=== PATIENT | female | born 1935 | race Two or more races ===

== ENCOUNTER 2017-06-01 10:27 | Emergency (ER) | payer OTHER ==
[~2017-06-01] VITALS: Ht 162.6 cm; Wt 59.0 kg
--- NOTE | 2017-06-01 10:29 | NUR ---
BBRA 860 FROM HOME FOR WEAKNESS AND DROWSINESS X 2 DAYS. GOWNED PT. PLACED ON MONITOR. AWAITING MD ORDER
--- NOTE | 2017-06-01 10:45 | NUR ---
LFA #20 IV ACCESS. BLOOD SAMPLE COLLECTED SENT TO LAB
[2017-06-01 10:46] LABS: BASOPHILS % (AUTO) 0.4 % (0.0-2.0); EOSINOPHILS # (AUTO) 0.1 /CMM (0.0-0.7); EOSINOPHILS % (AUTO) 0.9 % (0.0-6.0); HEMATOCRIT 45 % (33-45); HEMOGLOBIN 13.9 g/dL (11.5-14.8); LYMPHOCYTES # (AUTO) 1.4 /CMM (0.8-4.8); LYMPHOCYTES % (AUTO) 16.5 % (20.0-44.0); MEAN CORPUSCULAR HEMOGLOBIN 20 PG (26.0-33.0); MEAN CORPUSCULAR HGB CONC 31 g/dl (31.0-36.0); MEAN CORPUSCULAR VOLUME 66 fL (82-100); MONOCYTES # (AUTO) 0.6 /CMM (0.1-1.30); MONOCYTES % (AUTO) 6.8 % (2.0-12.0); NEUTROPHILS # (AUTO) 6.3 /CMM (1.8-8.9); NEUTROPHILS % (AUTO) 75.4 % (43.0-81.0); PLATELET COUNT (AUTO) 269 /CMM (150-450); RDW COEFFICIENT OF VARIATION 14.7 (11.5-15.0); RED BLOOD CELL COUNT(AUTO) 6.82 MIL/uL (4.0-5.2); WHITE BLOOD COUNT (AUTO) 8.4 K/uL (4.3-11.0)
[2017-06-01 10:54] LABS: CALCIUM, SERUM 9.4 mg/dL (8.5-10.1); CARBON DIOXIDE 33 mmol/L (21-32); CHLORIDE 106 mmol/L (98-107); CREATININE 0.7 mg/dL (0.6-1.3); GLUCOSE 115 mg/dL (74-106); POTASSIUM 3.6 mmol/L (3.5-5.1); SODIUM SERUM 141 mmol/L (136-145); UREA NITROGEN, BLOOD 15 mg/dL (7-18)
[2017-06-01] MEDS ORDERED: IV NS 0.9% 1,000 ML BAG IV ONE (11:00)
[2017-06-01 11:03] LABS: TROPONIN I < 0.017 ng/mL (0.00-0.056)
--- NOTE | 2017-06-01 11:27 | NUR ---
URINE SAMPLE COLLECTED SENT TO LAB
[2017-06-01 11:32] LABS: APPEARANCE,URINE Clear (CLEAR); BILIRUBIN,URINE Negative (NEGATIVE); BLOOD, URINE Negative Ery/uL (NEGATIVE); COLOR,URINE Yellow (YELLOW); KETONES,URINE Negative (NEGATIVE); LEUKOCYTE ESTERASE ,URINE Negative (NEGATIVE); NITRITE, URINE Negative (NEGATIVE); PROTEIN,URINE Negative (NEGATIVE); UGLUCOSE Negative (NEGATIVE); UROBILINOGEN,URINE 0.2 EU/dL (0.2)
[2017-06-01 12:34] VITALS: BP 138/72
--- NOTE | 2017-06-01 12:35 | NUR ---
Patient discharged to home in stable condition. Written and verbal after care instructions given. Patient verbalizes understanding of instruction.
== END 2017-06-01 12:36 | disposition home or self-care (01) ==
LOC: ER 10:30
DX: R53.1 Weakness (principal); E11.9 Type 2 diabetes mellitus without complications; W01.0XXA Fall on same level from slipping, tripping and stumbling without subsequent striking against object, initial encounter; Y93.01 Activity, walking, marching and hiking; Y92.89 Other specified places as the place of occurrence of the external cause; Y99.8 Other external cause status
CPT/HCPCS: 36415; 80048-TC; 81000-TC; 84484-TC; 85025-TC; A4606; J7030; Z7610

== ENCOUNTER 2017-06-06 21:10 | Inpatient (IN) | payer OTHER ==
[~2017-06-06] VITALS: Ht 157.5 cm; Wt 61.2 kg
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
--- NOTE | 2017-06-06 21:20 | NUR ---
DR RODRÍGUEZ AT BEDSIDE FOR EVAL.
--- NOTE | 2017-06-06 21:24 | NUR ---
IV LINE STARTED. BLOOD DRAWN AND SENT TO LAB.
--- NOTE | 2017-06-06 21:26 | NUR ---
RADIOLOGY AT BEDSIDE FOR CHEST XRAY.
[2017-06-06 21:27] LABS: BASOPHILS # (AUTO) 0.1 /CMM (0.0-0.2); BASOPHILS % (AUTO) 0.6 % (0.0-2.0); EOSINOPHILS # (AUTO) 0.1 /CMM (0.0-0.7); EOSINOPHILS % (AUTO) 1.5 % (0.0-6.0); HEMATOCRIT 42 % (33-45); HEMOGLOBIN 13.1 g/dL (11.5-14.8); LYMPHOCYTES # (AUTO) 2.3 /CMM (0.8-4.8); LYMPHOCYTES % (AUTO) 25.9 % (20.0-44.0); MEAN CORPUSCULAR HEMOGLOBIN 21 PG (26.0-33.0); MEAN CORPUSCULAR HGB CONC 31 g/dl (31.0-36.0); MEAN CORPUSCULAR VOLUME 66 fL (82-100); MONOCYTES # (AUTO) 0.7 /CMM (0.1-1.30); MONOCYTES % (AUTO) 7.6 % (2.0-12.0); NEUTROPHILS # (AUTO) 5.8 /CMM (1.8-8.9); NEUTROPHILS % (AUTO) 64.4 % (43.0-81.0); PLATELET COUNT (AUTO) 279 /CMM (150-450); RDW COEFFICIENT OF VARIATION 14.5 (11.5-15.0); RED BLOOD CELL COUNT(AUTO) 6.35 MIL/uL (4.0-5.2)
[2017-06-06 21:35] LABS: CALCIUM, SERUM 9.5 mg/dL (8.5-10.1); CARBON DIOXIDE 32 mmol/L (21-32); CHLORIDE 105 mmol/L (98-107); CREATININE 0.7 mg/dL (0.6-1.3); GLUCOSE 142 mg/dL (74-106); SODIUM SERUM 140 mmol/L (136-145); UREA NITROGEN, BLOOD 22 mg/dL (7-18)
[2017-06-06 21:39] LABS: INR 0.95 (0.87-1.13); PROTHROMBIN TIME 9.9 SECS (9.5-12.7)
[2017-06-06 21:44] LABS: TROPONIN I < 0.017 ng/mL (0.00-0.056)
--- NOTE | 2017-06-06 22:27 | NUR ---
REPORT GIVEN TO KARMEN. PT AWAITING TRANSFER TO FLOOR.
[2017-06-06] MEDS ORDERED: IV NS 0.9% 1,000 ML IV PRN (22:32)
[2017-06-06 22:45] VITALS: BP 163/73
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
[2017-06-06] MEDS ORDERED: ACETAMINOPHEN 325 MG TABLET PO PRN (23:00)
[2017-06-06] MEDS ORDERED: Z GUARD REMEDY 2 OZ OINT TP PRN (23:00)
[2017-06-06] MEDS ORDERED: ONDANSETRON HCL/PF 4 MG/2 ML VIAL IVP PRN (23:00)
[2017-06-06] MEDS ORDERED: MAGNESIUM HYDROXIDE 30 ML UDC PO PRN (23:00)
[2017-06-06] MEDS ORDERED: MORPHINE SULFATE INJ 2 MG/ML DISP.SYRIN IV PRN (23:00)
[2017-06-06] MEDS ORDERED: HYDROCODONE/APAP 5/325MG 1 EACH TABLET PO PRN (23:00)
[2017-06-06] MEDS ORDERED: MAG HYDROX/AL HYDROX/SIMETH 30 ML UDC PO PRN (23:00)
[2017-06-07] VITALS: BP_SYST 152; BP_SYST 167; BP_DIAS 67; BP_DIAS 75
[2017-06-07 04:00] VITALS: BP_SYST 135; BP_SYST 155; BP_DIAS 66; BP_DIAS 70
[2017-06-07 06:45] LABS: BASOPHILS % (AUTO) 0.1 % (0.0-2.0); EOSINOPHILS # (AUTO) 0.1 /CMM (0.0-0.7); EOSINOPHILS % (AUTO) 1.8 % (0.0-6.0); HEMATOCRIT 42 % (33-45); HEMOGLOBIN 13.2 g/dL (11.5-14.8); LYMPHOCYTES # (AUTO) 2.5 /CMM (0.8-4.8); LYMPHOCYTES % (AUTO) 32.3 % (20.0-44.0); MEAN CORPUSCULAR HEMOGLOBIN 21 PG (26.0-33.0); MEAN CORPUSCULAR HGB CONC 32 g/dl (31.0-36.0); MEAN CORPUSCULAR VOLUME 67 fL (82-100); MONOCYTES # (AUTO) 0.7 /CMM (0.1-1.30); MONOCYTES % (AUTO) 9.4 % (2.0-12.0); NEUTROPHILS # (AUTO) 4.4 /CMM (1.8-8.9); NEUTROPHILS % (AUTO) 56.4 % (43.0-81.0); PLATELET COUNT (AUTO) 270 /CMM (150-450); RDW COEFFICIENT OF VARIATION 15.8 (11.5-15.0); RED BLOOD CELL COUNT(AUTO) 6.24 MIL/uL (4.0-5.2); WHITE BLOOD COUNT (AUTO) 7.9 K/uL (4.3-11.0)
[2017-06-07 07:07] LABS: TROPONIN I < 0.017 ng/mL (0.00-0.056)
[2017-06-07 07:16] LABS: ALANINE AMINOTRANSFERASE 23 U/L (12-78); ALBUMIN 3.3 g/dL (3.4-5.0); ALKALINE PHOSPHATASE 54 U/L (46-116); ASPARTATE AMINOTRANSFERASE 17 U/L (15-37); BILIRUBIN,TOTAL 0.5 mg/dL (0.2-1.0); CALCIUM, SERUM 8.9 mg/dL (8.5-10.1); CARBON DIOXIDE 31 mmol/L (21-32); CHLORIDE 106 mmol/L (98-107); CREATININE 0.6 mg/dL (0.6-1.3); GLUCOSE 93 mg/dL (74-106); PHOSPHORUS 3.8 mg/dL (2.5-4.9); POTASSIUM 3.8 mmol/L (3.5-5.1); SODIUM SERUM 142 mmol/L (136-145); TOTAL PROTEIN, SERUM 6.8 g/dL (6.4-8.2); UREA NITROGEN, BLOOD 16 mg/dL (7-18)
--- NOTE | 2017-06-07 07:20 | NUR ---
TELE INITIAL RN NOTE: RECEIVED PATIENT AWAKE IN BED. PATIENT A&OX4, AMBULATORY WITH UNSTEADY GAIT. ON ROOM AIR, NO SOB, RESPIRATIONS EVEN AND UNLABORED. DENIES PAIN. TELE MONITOR SR. LEFT HAND SALINE LOCK PATENT AND INTACT. BED LOW, LOCKED WITH CALL LIGHT WITHIN REACH. EXPLAINED CARE PLAN, PATIENT AGREED. ALL NEEDS MET AND ANTICIPATED. WILL CONTINUE TO MONITOR.
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
[2017-06-07] MEDS ORDERED: ATEN50TA PO (07:46)
[2017-06-07] MEDS ORDERED: METF500T4 PO (07:46)
[2017-06-07 08:00] VITALS: BP_SYST 108; BP_SYST 150; BP_DIAS 54; BP_DIAS 75
--- NOTE | 2017-06-07 08:40 | NUR ---
IS PROJECT MANAGER NOTE: DR. JAVIER AT BEDSIDE. WILL CONT TO MONITOR.
--- NOTE | 2017-06-07 08:50 | NUR ---
TELECOM SPECIALIST NOTE: COST CONTROL SPECIALIST AT BEDSIDE. WILL CONT TO MONITOR.
[2017-06-07 08:53] LABS: BAND % (MANUAL) 2 % (0.0-5.0); LYMPHOCYTES % (MANUAL) 23 % (16-48); MONOCYTES % (MANUAL) 2 % (0-11.0); NEUTROPHILS % (MANUAL) 73 (42-76)
[2017-06-07] MEDS: METFORMIN 500 MG TABLET PO SCH (09:34)
[2017-06-07] MEDS: VALSARTAN 80 MG TABLET PO SCH (09:34)
[2017-06-07] MEDS: ATENOLOL 50 MG TABLET PO SCH (09:35)
--- NOTE | 2017-06-07 09:40 | NUR ---
SOUND CUTTER NOTE: PATIENT TAKEN VIA WHEELCHAIR TO HAVE CAT SCAN.
--- NOTE | 2017-06-07 09:52 | NUR ---
WELDER ASSISTANT NOTE: PATIENT BACK FROM CAT SCAN.
[2017-06-07 10:48] LABS: CHOLESTEROL 219 mg/dL (<200); HDL CHOLESTEROL 57 mg/dL (40-60); LDL 151 mg/dL (0-99); TRIGLYCERIDES 82 mg/dL (30-150)
[2017-06-07 12:00] VITALS: BP 101/62
--- NOTE | 2017-06-07 12:20 | NUR ---
ASTRONAUTICAL ENGINEER NOTE: GAS METER INSTALLER REPORTED PATIENT REMOVED LEFT HAND SALINE LOCK DURING SHOWER. WILL F/UP AND CONT TO MONITOR.
--- NOTE | 2017-06-07 13:35 | NUR ---
ACTIVITY ASSISTANT NOTE: DR. DUENAS SEEN PATIENT AT BEDSIDE. AWARE OF PSYCH EVALUATION.
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
--- NOTE | 2017-06-07 14:30 | NUR ---
CARTON MAKING MACHINIST NOTE: PATIENT REFUSED TO CONT IV FLUID. PER PATIENT, DOES NOT NEED IT. EDUCATED PATIENT ON RISKS AND BENEFITS, BUT PATIENT INSISTED THAT SHE IS GOOD AND EATING AND DRINKING. PATIENT HAD IV FLUIDS REMOVED THROUGHOUT THE DAY TO AMBULATE. WILL CONTINUE TO MONITOR.
[2017-06-07 16:00] VITALS: BP 135/70
--- NOTE | 2017-06-07 19:11 | NUR ---
HOSPITAL PERSONNEL DIRECTOR CLOSING NOTES PATIENT A&OX4. DENIES PAIN, SOB. VITAL SIGN WNL. ALL NEEDS MET AND ANTICIPATED. WILL ENDORSE TO DISTRICT BRANCH MANAGER NURSE FOR O[facility].
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
[2017-06-07 20:00] VITALS: BP 127/78
[2017-06-08 04:00] VITALS: BP 171/69
[2017-06-08 05:00] VITALS: BP 137/51
--- NOTE | 2017-06-08 06:39 | NUR ---
RN NOTE NO SIGNIFICANT CHANGES OVERNIGHT - PT SLEPT WELL. DENYING CP/SOB AT THIS TIME. NO DISTRESS NOTED. VSS. ALL NEEDS ATTENDED TO, WILL F/U WITH DAY SHIFT FOR [facility].
[2017-06-08 08:00] VITALS: BP 161/109
--- NOTE | 2017-06-08 08:00 | NUR ---
MAGNETO SPECIALIST NOTE: RECEIVED PATIENT AWAKE IN BED. PATIENT A&OX4, AMBULATORY WITH UNSTEADY GAIT. ON ROOM AIR, NO SOB, RESPIRATIONS EVEN AND UNLABORED. DENIES PAIN. . LEFT FA SALINE LOCK PATENT AND INTACT. BED LOW, LOCKED WITH CALL LIGHT WITHIN REACH. CARE PLAN, PATIENT DISCUSSED WITH PATIENT, AGREED. ALL NEEDS MET AND ANTICIPATED. WILL CONTINUE TO MONITOR. , NO SOB NOTED NO C\O CHEST PAIN AT THIS TIME , HAVING BREAKFAST EAT WELL , STILL REFUSING IVF WILL MONITOR CLOSELY
[2017-06-08] MEDS: METFORMIN 500 MG TABLET PO SCH (08:08)
[2017-06-08] MEDS: VALSARTAN 80 MG TABLET PO SCH (08:08)
[2017-06-08] MEDS: ATENOLOL 50 MG TABLET PO SCH (08:09)
[2017-06-08 08:17] VITALS: BP 161/109
--- NOTE | 2017-06-08 11:40 | NUR ---
MS RN NOTE UP ON CHAIR ,NOT IN ACUTE DISTRESS
[2017-06-08] MEDS ORDERED: hydrALAZINE HCL 25 MG TABLET PO PRN (14:00)
--- NOTE | 2017-06-08 14:12 | NUR ---
MS RN NOTE SPOKE WITH DR DUENAS NOTIFIED THAT HR BEFORE 55 ,ATENOLOL WAS HELD ALSO REFUSING IVF AT THIS TIME , DR PHILLIPS DIP BRAZIER SEEN PATIENT
[2017-06-08] MEDS ORDERED: LOSA100T15 PO (14:31)
--- NOTE | 2017-06-08 15:00 | NUR ---
MS RN NOTE DR PHILLIPS AND DR MAYORGA SPOKE WITH PATIENT , PER DR DUENAS OK TO DISCHARGE HOME, SON JAMES NOTIFIED , WILLING TO TAKE CARE HIS MOM AT HOME , D\C INSTRUCTION GIVEN TO PATIENT AND SON, UNDERSTOOD , ENPLANED POSSIBLE SIDE EFFECTS FOR NEW MEDS AND EMPLANED HOW TO TAKE IT , ALSO INSTRUCTED TO FOLLOW UP WITH PRIMARY CARE DOCTOR , STATED THAT WILL MAKE AN APPOINTMENT AT HER CONTINENCES , TODAY IS FRIDAY , HL REMOVED , DRY PRESSURE DRESSING APPLIED , TAKEN HOME TO LOBBY WITH SON , WITH STABLE CONDITION , BELONGING SIGNED AND NEW PX GIVEN
== END 2017-06-08 15:40 | disposition home or self-care (01) | DRG 205 ==
LOC: ER 21:11 → TELE1 22:19 → MEDSG1 06-07 10:00
PROVIDERS: ADMIT Nurse Practitioner Acute Care; ATTEND Nurse Practitioner Acute Care
DX: M94.0 Chondrocostal junction syndrome [Tietze] (principal); N17.0 Acute kidney failure with tubular necrosis; F32.3 Major depressive disorder, single episode, severe with psychotic features; E11.9 Type 2 diabetes mellitus without complications; E78.5 Hyperlipidemia, unspecified; I10 Essential (primary) hypertension; Z79.84 Long term (current) use of oral hypoglycemic drugs; F41.9 Anxiety disorder, unspecified; F41.0 Panic disorder [episodic paroxysmal anxiety]; R55 Syncope and collapse
CPT/HCPCS: 36415; 70450-TC; 71010-TC; 80048-TC; 80053-TC; 80061-TC; 83735-TC; 84100-TC; 84443-TC; 84484-TC; 85025-TC; 85730-TC; 87081-TC; 93307-TC; A4606; J7030; Z7610